=== PATIENT | female | born 1995 | race Caucasian/White ===

== ENCOUNTER 2018-08-08 10:01 | Outpatient (CLI) | payer OTHER ==
[~2018-08-08] VITALS: Ht 165.1 cm; Wt 97.6 kg
[2018-08-08 10:29] VITALS: BP 127/83
[2018-08-08] MEDS ORDERED: PRENTAB9 PO (10:34)
[2018-08-08 10:58] VITALS: BP 116/69
== END 2018-08-08 11:19 | disposition home or self-care (01) ==
LOC: M LDO 10:01
PROVIDERS: ATTEND Obstetrics & Gynecology
DX: Z34.83 Encounter for supervision of other normal pregnancy, third trimester (principal); Z36.89 Encounter for other specified antenatal screening; Z3A.37 37 weeks gestation of pregnancy
CPT/HCPCS: 59025; 76815; G0378; G0463

== ENCOUNTER 2018-08-12 11:14 | Outpatient (CLI) | payer OTHER ==
[~2018-08-12] VITALS: Ht 165.1 cm; Wt 97.5 kg
[~2018-08-12 11:14] MED LIST: PRENTAB9 PO
[2018-08-12 11:37] VITALS: BP 111/66
--- NOTE | 2018-08-12 13:14 | IPNPDOC ---
Text Note Date of Service The patient was seen on 08/12/18. NOTE [id number] @ 1307 23 yo @ 37+5 presented to L&D from clinic d/t BL FHR of 170. Monitored in clinic twice a week for presumed Class B DM. Denies DFM, LOF, CTXs, and vaginal bleeding. S: Pt is resting in bed in semi-fowlers denies pain or discomfort with spouse at bedside. O: VS- WNL, afebrile FHR- 140, moderate variability, + accels, no decels CTX- 1 noted during monitoring BPP- 8/10; no breathing movements noted A: 23 yo @ 37+5 with reactive NST, no CTXs, BPP-8/10 P: Discharge to home with strict return precautions. Consulted with Dr. Montoya, agrees with above plan of care. Pt has Monitoring scheduled for Saturday08/15/2018. Spent 10 min counseling on importance of returning if DFM noted or any change in status. Both parents verbalized understanding. VS,Fishbone, I+O VS, Fishbone, I+O Vital Signs Date Time Temp Pulse Resp B/P (MAP) Pulse Ox O2 Delivery O2 Flow Rate FiO2 08/12/18 11:37 98.6 86 16 111/66 (81) TAMANNA FELDMAN Aug 12, 2018 13:14
== END 2018-08-12 13:24 | disposition home or self-care (01) ==
LOC: M LDO 11:14
PROVIDERS: ATTEND Midwife
DX: O36.8330 Maternal care for abnormalities of the fetal heart rate or rhythm, third trimester, not applicable or unspecified (principal); Z3A.37 37 weeks gestation of pregnancy
CPT/HCPCS: 59025; 76815; G0378; G0463

== ENCOUNTER 2018-08-16 10:35 | Outpatient (CLI) | payer OTHER ==
[~2018-08-16] VITALS: Ht 162.6 cm; Wt 99.4 kg
[2018-08-16 10:57] VITALS: BP 113/70
[2018-08-16 12:42] VITALS: BP 114/64
[2018-08-16 12:50] VITALS: BP 111/61
== END 2018-08-16 13:10 | disposition home or self-care (01) ==
LOC: M LDO 10:35
PROVIDERS: ATTEND Specialist
DX: O26.893 Other specified pregnancy related conditions, third trimester (principal); O47.1 False labor at or after 37 completed weeks of gestation; Z3A.38 38 weeks gestation of pregnancy
CPT/HCPCS: 59025; G0378; G0463

== ENCOUNTER 2018-08-26 07:23 | Inpatient (IN) | payer OTHER ==
[~2018-08-26] VITALS: Ht 162.6 cm; Wt 99.6 kg
[2018-08-26] VITALS (46 sets, daily range): BP systolic 84–127; BP diastolic 45–82
[2018-08-26] MEDS ORDERED: PENICILLIN G POTASSIUM IV 5 MU in D5W MINI-BAG PLUS 100 ML IV STA ×2 (08:40→15:46)
[2018-08-26] MEDS ORDERED: LACTATED RINGER'S 1000 ML IV ONE (08:45)
[2018-08-26] MEDS ORDERED: OXYTOCIN DRIP 30 UNITS in APPROPRIATE DILUENT 1 EA IV SCH (08:45)
[2018-08-26] MEDS: LR 1,000 ML IV SCH ×3 (09:26→22:55)
[2018-08-26 09:35] LABS: HEMATOCRIT 36.1 % (36.0-47.0); MEAN CORPUSCULAR HEMOGLOBIN 28.2 pg (27.0-33.0); MEAN CORPUSCULAR HGB CONC 33.2 g/dl (32.0-36.5); MEAN CORPUSCULAR VOLUME 84.9 fl (80.0-96.0); PLATELET COUNT, AUTOMATED 284 10^3/uL (150-450); RED BLOOD COUNT 4.25 10^6/uL (4.00-5.40)
--- NOTE | 2018-08-26 11:03 | HPE ---
DATE OF ADMISSION: 08/26/2018 23-year-old 2, para 0, last menstrual period (LMP) 11/21/2017, estimated date of confinement (EDC) 08/28/2018 at 39 and 5 weeks of gestation for induction of labor being a gestational diabetes mellitus (GDM) 1, body mass index (BMI) of 34.6. Group B Streptococcus (GBS) positive, Rh negative. PAST HISTORY: 03/2018, spontaneous . LABS: A negative, HIV negative, hepatitis negative, RPR negative, rubella immune. Varicella immune. Pap normal. Urine GBS positive. Initial 1-hour glucose was 151. She did her 3-hour GTT, fasting 89, 1 hour 82, 2 hour 176, and 3 hours 149. She has been monitoring her blood glucose, and apparently they are within normal limits. She had an TITA done on 08/12/2018 which is at the margin of normal at 5.2. Apparently, she had one done 72 hours before induction of labor, it was 12.0. Her blood pressure is 117/68, respirations are 18, pulse 104, temperature is 97.7. Urine is 1.015, pH 6. and +1 for leukocytes. The rest of the examination is unremarkable. She is normocephalic, atraumatic. Neck: Full range of motion. Pupils equal and reactive to light. She category 1 strip. No decelerations, moderate variability, baseline is normal. Distal pulses are symmetric. No evidence of deep venous thrombosis (DVT), pulmonary embolus (PE), or superficial phlebitis. Chest is clear bilaterally to bases. No wheezes or rhonchi. No costovertebral angle (CVA) tenderness. Abdomen: Soft. Four quadrant bowel sounds, appropriate symphysis fundus height. She has no rashes, lesions, or pruritus. No arthralgia, myalgia. No complaint joint pain. No complaint of cough, wheeze, shortness of breath, or dyspnea on exertion. No infection. Neuro complete. She has no incontinency, urgency, or frequency. No nausea, vomiting, diarrhea, or constipation. She has no diabetic issues. 3-hour GTT apparently was normal. Her past gyne history is unremarkable. Medical and surgical noncontributory. Family history is noncontributory. She does not smoke, drink, abuse drugs. No domestic violence. to a soldier, and good support systems. Our plan of management is to hydrate, Pitocin augmentation or induction of labor, possibly followed up by Navarrete bulb after appropriate antibiotic therapy for group B Streptococcus (GBS). We discussed the consent for vaginal delivery which is through the vagina with possible assistance of forceps or vacuum devices if needed for maternal or indications, forceps, a vacuum, or devices that can assist with vaginal delivery when normal pushing efforts cannot achieve delivery on their own or when delivery is needed in an emergency for baby's well-being. Medications may be required to induce or augment labor in order to achieve a vaginal delivery, and episiotomy may be required to help baby deliver vaginally. You may also require repair of any lacerations or tears of the vagina or vulva that are caused by delivery. In some cases emergencies, can arise that require emergency section delivery so quickly that there may not be enough time to stop and complete consent forms, but the surgery will be discussed with the patient by the physician, section delivery of baby through incision on the abdomen. In some situations, may be safer to mother and baby than continuing labor and only performed when clinically indicated. The risks of vaginal delivery include, but are not limited to, bleeding, infection, injury to the vagina, pelvic structures, injury to baby, damage to the uterus, reaction to anesthesia, uterine rupture, risk of hysterectomy for life-threatening bleeding situations which is usually remote, or even . Medications used to induce or augment labor may increase the risk for infection, uterine tachysystole, uterine rupture, heart rate abnormalities, and the need for section or possible hysterectomy, hemorrhage, and additional risks for use of forceps and vacuum include scratches, hematomas of the head, or intracranial bleed. The patient expressed and verbalized understanding of the risks and benefits. agreed. 40-minute discussion. GEM
[2018-08-26] MEDS ORDERED: PENICILLIN G POTASSIUM IV 2.5 MU in APPROPRIATE DILUENT 1 EA IV SCH (12:45)
[2018-08-26] MEDS: PENICILLIN G POTASSIUM IV 2.5 MU in APPROPRIATE DILUENT 1 EA IV SCH (20:04)
--- NOTE | 2018-08-26 20:04 | NUR ---
2000 hours review patient progress antibiotic coverage complete contractionsq6 min moderate intensify pain level 5/10 category 1 strip Pitocin at 16 mu per minute, cervix anterior 70% effaced -3 station stretchy 2-3 cm now srom clear liquor. Safe to proceed
[2018-08-26] MEDS ORDERED: **PENDING PCN ENTRY XX SCH (21:00)
[2018-08-26] MEDS ORDERED: FENTANYL 2MCG/ML ROPIVACAINE 0.2% IN 0.9% NACL 100ML IVBAG As Ordered ONE (21:01)
[2018-08-26] MEDS: FENTANYL/ROPIVACAINE/NACL BAG 100 ML EPIDURAL SCH (22:47)
[2018-08-26] MEDS ORDERED: ONDANSETRON 4MG/2ML VIAL (J2405) IV PRN (23:15)
[2018-08-26] MEDS ORDERED: EPIDURAL/PCA KEYS XX PRN (23:15)
[2018-08-26] MEDS ORDERED: diphenhydrAMINE INJ 50MG/ML VIAL (J1200) IV PRN (23:15)
[2018-08-26] MEDS ORDERED: EPIDURAL COMMENT XX SCH (23:15)
[2018-08-26] MEDS ORDERED: REFRIGERATOR IV KEYS XX PRN (23:15)
[2018-08-26] MEDS ORDERED: NALOXONE INJ 0.4 MG/1 ML VIAL (J2310) IV PRN (23:15)
[2018-08-26] MEDS: ePHEDrine SULFATE 25 MG/5 ML(5MG/ML) SYRINGE IV PRN ×2 (23:24→23:30)
[2018-08-27] VITALS (54 sets, daily range): BP systolic 85–115; BP diastolic 44–62
[2018-08-27] MEDS: ePHEDrine SULFATE 25 MG/5 ML(5MG/ML) SYRINGE IV PRN (00:13)
[2018-08-27] MEDS: PENICILLIN G POTASSIUM IV 2.5 MU in APPROPRIATE DILUENT 1 EA IV SCH ×3 (00:17→08:09)
[2018-08-27] MEDS: LR 1,000 ML IV SCH (02:52)
--- NOTE | 2018-08-27 06:22 | NUR ---
0440 am late deceleration x3 good variability moderate and rapid recovery. 8-9 cm pop Plan stop Pitocin allow to labor down safe to proceed
--- NOTE | 2018-08-27 06:30 | NUR ---
0600 adequate contractions no decelerations anterior lip pop -3 station no moulding still low bp since epidural Epidural reduced ephedrine given allow to continue witout pitocin
[2018-08-27] MEDS: FENTANYL/ROPIVACAINE/NACL BAG 100 ML EPIDURAL SCH (08:55)
--- NOTE | 2018-08-27 09:12 | NUR ---
L&D Intrapartum Progress Note S: CNM at for reassessment as patient is reporting increased vaginal/rectal pressure. She denies pain. Family present at bs for support. O: VSS/AF GEN: A&Ox3,NAD ABD: Gravid; NNTP; relaxed uterine resting tone FHR: 150 BL, moderate variability; + accelerations; no decelerations TOCO: irregular u/a ctx q2-6min; min/mod intensity via palp SCE: right anterior lip/100/+1, cephalic vtx A/P: 23y/o at 39+6 weeks; admission for IOL d/t GDM A1 and BMI 34. GBS+ adequately treated. CAT I FHR. Protracted active phase of labor. OP presentation and irregular U/A. Will augment with oxytocin at this time and continue with maternal repositioning to facilitate internal rotation. Reviewed risks/benefits. Pt agrees with plan. Safe to proceed.
--- NOTE | 2018-08-27 12:40 | NUR ---
L&D Intrapartum Progress Note S: CNM at for reassessment. SVE by RN at 1120: C/C/+2; and has been pushing since that time. Pt reports strong urge to push with ctx. Denies questions/concerns. Family remains present at bedside for support. O: VSS/AF GEN: A&Ox3,NAD ABD: Gravid; NNTP; relaxed uterine resting tone FHR: 155 BL, moderate variability; + accelerations; early decelerations TOCO: q3 min; moderate variabilty on oxytocin at 10mu/min SCE: c/c/+3 some caput noted A/P: 23y/o at 39+6 weeks; admission for IOL d/t GDM A1 and BMI 34. GBS+ adequately treated. CAT I FHR. Second stage labor. Pushing well. CAT I FHR. I anticipate this afternoon.
[2018-08-27] MEDS ORDERED: OXYTOCIN 30 UNITS IN 0.9% NaCl 500ML IV BAG (J2590) As Ordered ONE (13:45)
[2018-08-27] MEDS ORDERED: OXYTOCIN DRIP 30 UNITS in APPROPRIATE DILUENT 1 EA IV SCH (13:48)
[2018-08-27] MEDS ORDERED: MOM 30ML SUSPENSION UDC PO PRN (14:00)
[2018-08-27] MEDS ORDERED: DOCUSATE SODIUM 100 MG CAP PO PRN (14:00)
[2018-08-27] MEDS ORDERED: MEASLES,MUMPS,RUBELLA VACCINE INJ (MMR-II) (90707) SC SCH (14:00)
[2018-08-27] MEDS ORDERED: RHOGAM 300 MCG (1500 IU) INJ (J2790) IM SCH (14:00)
[2018-08-27] MEDS ORDERED: DIBUCAINE 1% OINTMENT 30GM TOP PRN (14:00)
[2018-08-27] MEDS ORDERED: ACETAMINOPHEN 500 MG TAB PO PRN (14:00)
[2018-08-27] MEDS ORDERED: ANUSOL HC CREAM 30GM TOP PRN (14:00)
[2018-08-27] MEDS ORDERED: METHYLERGONOVINE MALEATE 0.2 MG TAB PO PRN (14:00)
--- NOTE | 2018-08-27 14:00 | NUR ---
[facility] L&D Delivery Summary: CNM called to bs for management of second stage labor. Pushing with excellent maternal effort in various positions. Thick mec noted during pushing and NICU staff was notified and at the bedside during delivery. After approximately 2 hours of pushing vertex delivered direct OA and restituted to TASHIA. Left anterior shoulder delivered followed by posterior shoulder and corpus. Spontaneous cry following delivery. 3VC double clamped and cut by MIRI and nbn handed off to Dr. Batres for initial assessments d/t thick mec. Cord blood collected for MBT A NEG . With gentle traction on cord; placenta delivered Mj and found to be complete and intact w/ central cord insertion. FF@U-2 with small rubra lochia noted following placental delivery with oxytocin bolus infusing for active management of the third stage. Vagina, perineum and cervix inspected for lacerations. Bilateral labial lacs present. Right laceration repaired with 4-0 vicryl on an SH. Left labial laceration hemostatic and not repaired. Mom and babe bonding and in stable condition when I left the room. Delivery Time: 1317, male infant Placenta Time: 1334 Anesthesia: Epidural : 8/9 Weight: 3590g EBL: 250ml Attendant: Jamar Loera CNM
[2018-08-27] MEDS: IBUPROFEN 800 MG TAB PO PRN (23:07)
[2018-08-28 06:00] VITALS: BP 97/52
--- NOTE | 2018-08-28 07:27 | IPNPDOC ---
Text Note Date of Service The patient was seen on 08/28/18. NOTE PPD1 States feeling well, pain controlled with prescribed meds. Baby bonding and feeding well, formula only. No heavy VB. Lochia slowing. Ambulatory. Tolerating PO without issues. Voiding spont. No CP/LP/SOB. VSSAF NAD A&O LE no C/C/E Ut at U-2, firm a/p: Doing well. Cont routine care. D/C likely tomorrow. immigration consultant today to assist. Sessions A-FIB/GAGE A-FIB History Current/History of A-Fib/PAF?: No Current Oral Anticoagulant The: No VS,Fishbone, I+O VS, Fishbone, I+O Vital Signs Date Time Temp Pulse Resp B/P (MAP) Pulse Ox O2 Delivery O2 Flow Rate FiO2 08/28/18 06:00 97.7 83 18 97/52 (67) 08/27/18 18:00 97 I&O- Last 24 Hours up to 6 AM 08/28/18 06:00 Intake Total 5559.4 ml Output Total 1800 ml Balance 3759.4 ml SESSIONS,RUPALI Naidu MD Aug 28, 2018 07:27
[2018-08-28] MEDS: PRENATAL VITAMINS CHEWABLE TABLET PO SCH (08:49)
[2018-08-28 14:00] VITALS: BP 96/61
[2018-08-29 06:00] VITALS: BP 109/55
[2018-08-29] MEDS: PRENATAL VITAMINS CHEWABLE TABLET PO SCH (08:07)
[2018-08-29] MEDS: IBUPROFEN 800 MG TAB PO PRN (08:36)
[2018-08-29] MEDS ORDERED: ACET-861 PO (09:17)
[2018-08-29] MEDS ORDERED: COLA100C5 PO (09:17)
[2018-08-29] MEDS ORDERED: IBUP200C33 PO (09:17)
[2018-08-29 10:45] VITALS: BP 138/68
[2018-08-29 11:15] VITALS: BP 133/90
--- NOTE | 2018-08-29 18:22 | IPNPDOC ---
Progress Note Date of Service: Aug 29, 2018 Day#: 2 Progress Note late entry, patient seen earlier this morning prior to discharge SUBJECT: Pt is a 23yo [id number] s/p uncomplicated at 39+wk after undergoing IOL for A1GDM, doing well day # 2. She has been ambulating, voiding spontaneously without issue and tolerating regular diet. Breast feeding without issue. Reports lochia is like a normal period. Denies f/c/n/v/CP/SOB. OBJECTIVE: VITAL SIGNS: Within normal limits, afebrile. Alert and oriented times three. Abdomen: Fundus firm at U-2. Soft, NTTP Extremities: no pain with palpation of calves ASSESSMENT: Pt is a 23yo [id number] s/p uncomplicated at 39+wk after undergoing IOL for A1GDM, doing well day # 2. Vitals within normal limits, afebrile, hemodynamically stable with no evidence of infection. PLAN: 1. Discharge to home today. 2. Tylenol and Motrin for pain. 3. Encourage breast feeding and ambulation. 4. Minipillfor contraception 5. Routine PP visit in 6 weeks in clinic. 6. Discussed return precautions at length. Dr. Francesca Ware MD VS, I&O, 24H, Fishbone Vital Signs/I&O Vital Signs Date Time Temp Pulse Resp B/P (MAP) Pulse Ox O2 Delivery O2 Flow Rate FiO2 08/29/18 11:15 98.1 72 18 133/90 (104) 97 Francesca Ware MD Aug 29, 2018 18:22
--- NOTE | 2018-08-30 06:41 | IPN ---
DATE OF SERVICE: 08/28/2018 This patient has requested circumcision of their male . After discussing risks and benefits of circumcision, medical and nonmedical indication, penile block and aftercare, signed the consent form. All questions were answered. 20-minute discussion. We await the clearance by the automobile brakes bonder.
== END 2018-08-29 11:59 | disposition home or self-care (01) | DRG 807 ==
LOC: M LDI 07:23 → M OBS 08-27 16:18
PROVIDERS: ADMIT Obstetrics & Gynecology; ATTEND Advanced Practice Midwife
PROC: 3E033VJ Introduction of Other Hormone into Peripheral Vein, Percutaneous Approach (ICD-10-PCS; 2018-08-26)
PROC: 10E0XZZ Delivery of Products of Conception, External Approach (ICD-10-PCS; principal; 2018-08-27)
PROC: 0HQ9XZZ Repair Perineum Skin, External Approach (ICD-10-PCS; 2018-08-27)
DX: O24.420 Gestational diabetes mellitus in childbirth, diet controlled (principal); Z37.0 Single live birth; Z3A.39 39 weeks gestation of pregnancy; O99.824 Streptococcus B carrier state complicating childbirth; O70.0 First degree perineal laceration during delivery

== ENCOUNTER 2020-02-09 14:10 | Outpatient (CLI) | payer OTHER ==
[~2020-02-09] VITALS: Ht 160 cm; Wt 102.3 kg
[~2020-02-09 14:10] MED LIST changes: +ACET-861 PO; +COLA100C5 PO; +IBUP200C33 PO
[2020-02-09 14:27] VITALS: BP 115/61
[2020-02-09] MEDS ORDERED: METF500T13 PO (14:33)
--- NOTE | 2020-02-09 15:47 | REPVR ---
PROCEDURE INFORMATION: Exam: US Biophysical Profile Without Non-Stress Test Exam date and time: 02/09/2020 3:03 PM Age: 25 years old Clinical indication: status abnormalities: ; Other: Nonreactive nst; Single gestation; Third trimester (28 wks 0 days until delivery); ; Additional info: Nonreactive nst in clinic with variable decelerations TECHNIQUE: Imaging protocol: US biophysical profile without non-stress testing. COMPARISON: No relevant prior studies available. FINDINGS: Single, living intrauterine fetus in cephalic presentation with the given gestational age by the LMP from 06/13/2019 measuring 34 weeks and 3 days and AAMIR of 03/19/2020. Placenta is posterior and fundal, grade II. No abruptio or previa. The heart rate is 143 beats/min. Left hydronephrosis is seen in the fetus. The right kidney appears within normal limits. BIOPHYSICAL PROFILE: Breathin/2 Gross body movements: 2/2 tone: 2/2 Qualitative amniotic fluid: 2/2. The TITA measures 12.1 cm. Biophysical Profile Score: 8/8 The umbilical artery PSV measures 32.7 cm/sec. The EDV measures 11.2 cm/sec. The umbilical artery S/D ratio measures 2.92 which is within normal limits. The umbilical artery RI measured 0.66 which is within normal limits. IMPRESSION: 1. Single, intrauterine fetus in cephalic presentation, with a heart rate of 143 beats per minute. Left hydronephrosis is seen in the fetus. The right kidney appears within normal limits. 2. Normal biophysical profile, measuring 8/8. 3. Normal doppler velocimetry of the umbilical artery. Electronically signed by: Hernandez Pelaez On 02/09/2020 15:47:12 PM
[2020-02-09 16:12] VITALS: BP 116/74
--- NOTE | 2020-02-09 16:26 | IPNPDOC ---
Text Note Date of Service The patient was seen on 02/09/20. NOTE LND Triage Note S: Beverley is a 25yo at 34+3wks, EDC [id number], who was sent to LND for prolonged monitoring and BPP d/t variables noted during APFT in clinic today. Pt currently reports +FM, denies LOF/VB/CTX. complicated by the following: Class B DM, currently on metformin Obesity Rh Negative (Rhogam [id number]) O: VSS, afebrile, normotensive FHR 140s-150s, moderate variability, + accels, 1x variable deceleration noted after an accel CTX: none US: BPP 8/8; Left hydronephrosis noted on today's US A: 25yo at 34+3wks, reactive NST, BPP 8/8, overall reassuring status Pt to be discharged home with return precautions Will order f/u BPP with her next growth US and to review hydronephrosis (not seen on prior US) VS,Antoniobone, I+O VS, Antoniobone, I+O Vital Signs Date Time Temp Pulse Resp B/P (MAP) Pulse Ox O2 Delivery O2 Flow Rate FiO2 02/09/20 14:27 96.9 105 18 115/61 (79) DESIREE ALLEN CNM Feb 09, 2020 16:26
== END 2020-02-09 16:19 | disposition home or self-care (01) ==
LOC: M LDO 14:10
PROVIDERS: ATTEND Registered Nurse Maternal Newborn
DX: O26.893 Other specified pregnancy related conditions, third trimester (principal); Z3A.34 34 weeks gestation of pregnancy
CPT/HCPCS: 59025; 76815; 76819; 76820; G0378; G0463

== ENCOUNTER 2020-03-15 09:50 | Inpatient (IN) | payer OTHER ==
[2020-03-15] VITALS (10 sets, daily range): BP systolic 81–126; BP diastolic 49–69
[~2020-03-15] VITALS: Ht 160 cm; Wt 103.0 kg
[~2020-03-15 09:50] MED LIST changes: +METF500T13 PO
[2020-03-15] MEDS ORDERED: LR 1,000 ML IV SCH (12:14)
[2020-03-15] MEDS ORDERED: OXYTOCIN DRIP 30 UNITS in IV 1 EA IV SCH (12:15)
[2020-03-15 13:13] LABS: HEMOGLOBIN 11.6 g/dl (12.0-15.5); MEAN CORPUSCULAR HEMOGLOBIN 26.5 pg (27.0-33.0); MEAN CORPUSCULAR HGB CONC 32.2 g/dl (32.0-36.5); MEAN CORPUSCULAR VOLUME 82.2 fl (80.0-96.0); PLATELET COUNT, AUTOMATED 284 10^3/uL (150-450); RED BLOOD COUNT 4.38 10^6/uL (4.00-5.40); WHITE BLOOD COUNT 11.1 10^3/uL (4.0-10.0)
[2020-03-15 13:28] LABS: BEDSIDE GLUCOSE CONFIRMATION 92 MG/DL (LESS THAN 200)
[2020-03-15] MEDS: LR 1,000 ML IV SCH ×3 (13:29→17:42)
--- NOTE | 2020-03-15 14:28 | HPEPDOC ---
Obstetrical History & Physical General Date of Admission Mar 15, 2020 at 09:50 History of Present Illness 25yo ada [id number] @39+3, A-, GBS-, complicated by Pre gestational diabetes diagnosed by early one hour gtt, maternal obesity, hydronephrosis, admitted for IOL Chief Complaint: Other (IOL) Information Provided By: Patient Age: 25 : 3 Term: 1 Pre-term: 0 Abortions: 1 Livin Care Care: Good Care Dating Final EDC: Mar 19, 2020 Final EDC for Daily Update: Mar 19, 2020 Final EDC by: LMP LMP: Jun 13, 2019 EGA at Admission: 39 (+3) Antepartum Course Diagnos(e)s Pre gestational diabetes, maternal obesity, hydronephrosis Height (inches): 64 Pre- weight (lbs.): 200 Admission Weight (lbs.): 227 Change in Weight (lbs.): 27 Past Medical History Past Obstetrical History : Past Obstetrical History: Multigravida Date of Delivery: Mar 15, 2020 (08/2018) Type of Delivery: Spontaneous Vaginal Del. Sex of : Male Weight of Infant (grams): 3600 Complications: Yes (gestational diabetes) LIBRARY MEDIA SPECIALIST History: Spontaneous (6wk with D&C) Past Medical History Medical History diabetes, obesity Surgical History: Dilatation and Curettage Family History Significant Family History: Diabetes (mother and father) Social History Marital Status: Psychosocial History: No pertinent psych hx * Smoker: non-smoker Alcohol: Denies Drugs: denies Abuse Violence Screening Have you been hit/kicked/slapp: No Have you been sexually assault: No Imunizations Tdap status: current Allergies Coded Allergies: No Known Allergies (Verified Allergy, Unknown, 08/08/18) Medications Scheduled Metformin HCl (Metformin HCl) 500 Mg Tablet, 500 MG PO DAILY No.137/Iron/Folic Acd ( Vitamin Tablet) 1 Tab Tab, 1 TAB PO DAILY Physical Examination Physical Examination GENERAL: Alert and oriented times three. BREAST: . ABDOMEN: Gravid and non-tender to touch. FETUS: Is vertex (VTX) by sterile vaginal examination (SVE), fetus is vertex (VTX) by Prashanth confirmed on TAUS. HEART RATE: Regular rate and rhythm. LUNGS: Clear to auscultation (CTA). EXTREMITIES: mild edema of hands and feet. Vital Signs/I&O Vital Signs Date Time Temp Pulse Resp B/P (MAP) Pulse Ox O2 Delivery O2 Flow Rate FiO2 03/15/20 13:25 97.9 99 115/69 (84) 18 Laboratory Data 24H LABS Laboratory Tests 2 03/15/20 10:03: Serology Scanned Report Hepatitis B Testing 03/15/20 12:25: Nucleated Red Blood Cells % (auto) 0.0, Bedside Glucose Confirm (Misc) 92 CBC/BMP Laboratory Tests 03/15/20 12:25 Urine Culture: Contaminated Pertinent Laboratoy Data Blood Type: A- RBC Antibody Screen: Negative HIV: Negative Hepatitis B: Negative Rapid Plasma Reagin: Nonreactive Rubella: Immune Varicella: Immune Chlamydia/Gonorrhea: Negative Group B Streptococcus: Negative Cystic Fibrosis: Negative Anatomy Ultrasound Placenta Location: Posterior Normal Anatomy: Yes Placenta Previa: No Estimated Weight (grams): 3003 (at 36+5) Vaginal Examination Dilation: 2cm Effacement: 50% Station: -3 Cervical Consistency: Medium Cervical Position: Posterior Presentation: Cephalic presentation Position: Vertex (occiput) Assessment Heart Rate (FHR): 130 Variability: Moderate Accelerations: Positive Decelerations: None Tocometer Contractions: No Multi-drug resistant Organism: No history of MDRO Assessment/Plan Assessment Beverley is a 25-year-old (G)3 para (P)1-0-1-1 at 39+3 weeks by 10+3-week ultrasound. Presents to Labor and Delivery (L&D) for scheduled IOL. Denies bleeding, lof, cramping, or other complaints, states frequent movement. Plan Admit and orient. Florist Supplies Salesperson and consent for induction and labor. Diet: clear liquid Group B Streptococcus (GBS) [negative]. Labs and intravenous (IV) per unit protocol. Counseled on Pitocin and induction of labor (IOL). Lactated Ringers (LR): Bolus 1000 mL, then at 125 mL/hr. Anticipate [normal spontaneous delivery ()]. Initiate pitocin augmentation and titrate per protocol, continuous efm x2. Monitor for change in or maternal status. Evaluate for change as indicated. C-S as appropriate. Labor and Delivery Counseling Reviewed conset for blood products, induction and labor with expressed understanding and confirmed consent. JAYANT MAYS Mar 15, 2020 14:28
[2020-03-15] MEDS ORDERED: PENICILLIN G POTASSIUM IV 2.5 MU in IV 1 EA IV SCH (16:15)
[2020-03-15] MEDS ORDERED: FENTANYL 2MCG/ML ROPIVACAINE 0.2% IN 0.9% NACL 100ML IVBAG As Ordered ONE (21:27)
--- NOTE | 2020-03-15 22:00 | IPNPDOC ---
Obstetrical Progress Note Date of Service Mar 15, 2020 Subjective Pt c/o increased pain, requesting epidural Objective Vital Signs Date Time Temp Pulse Resp B/P (MAP) Pulse Ox O2 Delivery O2 Flow Rate FiO2 03/15/20 17:47 90 109/53 (71) 03/15/20 17:08 97.9 18 03/15/20 13:25 18 Assessment Heart Rate (FHR): 130 Variability: Moderate Accelerations: Positive Decelerations: None Heart Rate Tracing: Category I Tocometer Contractions: Yes (on 14mu pitocin) Frequency: regular, every 2-2 min. Duration: greater than 60 seconds Strength: palpated as moderate Sterile Vaginal Examination Dilation: 4 cm Effacement (%): 50% Station: -3 Cervical Consistency: Medium Cervical Position: Posterior Postion/Presentation: Cephalic presentation Assessment and Plan Age: 25 : 3 Term: 1 Pre-term: 0 Abortions: 1 Livin EGA at Admission: 39 (+3) Status: Reassuring Group B Streptococcus: Negative Anticipate: Vaginal Delivery Additional Comments 1000ml LR bolus then return to 125ml/hr, continuous efm x2, continue pitocin augmentation and titrate per protocol, monitor for change in or maternal status, may have epidural as desired, consider AROM as appropriate, anticipate vaginal delivery JAYANT MAYS CNM Mar 15, 2020 22:00
[2020-03-15] MEDS ORDERED: LACTATED RINGER'S 1000 ML IV PRN (22:56)
[2020-03-15] MEDS ORDERED: REFRIGERATOR IV KEYS XX PRN (22:56)
[2020-03-15] MEDS ORDERED: FENTANYL/ROPIVACAINE/NACL BAG 100 ML EPIDURAL SCH (22:56)
[2020-03-15] MEDS ORDERED: NALOXONE INJ 0.4MG/1ML VIAL (J2310 PER 1MG) IV PRN (22:56)
[2020-03-15] MEDS ORDERED: EPIDURAL/PCA KEYS XX PRN (22:56)
[2020-03-15] MEDS ORDERED: EPIDURAL COMMENT XX SCH (22:56)
[2020-03-15] MEDS ORDERED: diphenhydrAMINE 50MG/ML VIAL (J1200) IV PRN (22:56)
[2020-03-15] MEDS ORDERED: ePHEDrine SULFATE 25 MG/5 ML(5MG/ML) SYRINGE IV PRN (22:56)
[2020-03-15] MEDS ORDERED: ONDANSETRON 4MG/2ML VIAL IV PRN (22:56)
[2020-03-16] VITALS (21 sets, daily range): BP systolic 70–120; BP diastolic 32–72
[2020-03-16] MEDS: LR 1,000 ML IV SCH (02:52)
--- NOTE | 2020-03-16 06:12 | DNPDOC ---
[facility] Delivery Note Delivery Note DATE OF DELIVERY: 03/16/2020 PREDELIVERY DIAGNOSIS: 39+4/7 weeks' gestation and labor. POST DELIVERY DIAGNOSIS: Delivered. PROCEDURE: Spontaneous vaginal delivery. FORM SETTER HELPER: Dr. Rahel Moeller ANESTHESIA: Epidural. ESTIMATED BLOOD LOSS: 100 mL. FINDINGS: 8 pound 6 ounce 3800g male , Score 8/8, nuchal cord times x1. DELIVERY SUMMARY: Ms. Lowery was found to be C/C/0 with BBOW. Upon exam, spontaneous rupture of membranes with clear fluid noted. With excellent maternal pushing effort over 3 sets of contractions, spontaneous vaginal delivery of a viable male infant. Presentation was OA with restitution to ROT with left shoulder anterior position. Anterior shoulder and body delivered without difficulty. Tight nuchal x2 delivered through as unable to be reduced on perineum. with spontaneous cry on delivery field then placed on maternal abdomen. Pitocin IV bolus initiated. After 6 minutes of delayed cord clamping, three vessel cord clamped x2 and cut by FOB. Cord blood sample obtained. Third stage spontaneous with intact placenta. Fundal massage revealed firm uterine tone and hemostasis. Inspection revealed hemostatic abrasions to the bilateral labia and the perineum, no repair was indicated. EBL 100ml. Mother and infant stable and bonding upon my leaving the room. RAHEL MOELLER DO Mar 16, 2020 06:12
[2020-03-17 06:05] VITALS: BP 92/52
--- NOTE | 2020-03-17 06:14 | IPNPDOC ---
Progress Note Date of Service: Mar 17, 2020 Progress Note SUBJECT: Beverley is a 25 -year-old 3now Para3 003 status post uncomplicated spontaneous vaginal delivery at 39+4/7 weeks' at approximately of a male 8 pounds 6 ounces 800 grams) with post vaginal laceration , doing well day # 1. She has been ambulating, voiding spontaneously without issue and tolerating regular diet. Breast feeding without issue. Reports lochia is minimal . OBJECTIVE: VITAL SIGNS: Within normal limits, afebrile. Alert and oriented times three. normal work of breathing Heart rate: Regular rate and rhythm Abdomen: Fundus firm at U-2. Soft, NTTP. ASSESSMENT: Beverley is a 25 -year-old 3now Para3 003 status post uncomplicated spontaneous vaginal delivery at 39+4/7 weeks' at approximately of a male 8 pounds 6 ounces 800 grams) with post vaginal laceration , doing well day # 1. Vitals within normal limits, afebrile, hemodynamically stable with no evidence of infection. PLAN: 1. Discharge to home today. 2. Tylenol and Motrin for pain. 3. Encourage breast feeding and ambulation. 4. Paragard for contraception for now, desires BTL. 5. Routine PP visit in 6 weeks in clinic. 6. Discussed return precautions at length. VS, I&O, 24H, Fishbone Vital Signs/I&O Vital Signs Date Time Temp Pulse Resp B/P (MAP) Pulse Ox O2 Delivery O2 Flow Rate FiO2 03/16/20 18:00 99.0 80 17 113/65 (81) 100 Room Air I&O- Last 24 Hours up to 6 AM 03/17/20 06:00 Output Total 1000 ml Balance -1000 ml ROBERTO CARLOS MOE MD Mar 17, 2020 04:52
[2020-03-17] MEDS ORDERED: DOCU100C16 PO (06:25)
[2020-03-17] MEDS ORDERED: IBUP80TA PO (06:25)
[2020-03-17] MEDS ORDERED: ACET-683 PO (06:25)
[2020-03-17 07:30] VITALS: BP 92/52
[2020-03-17] MEDS ORDERED: INFLUENZA QUADRIVALENT PF VACCINE 0.5ML SYRINGE IM ONE (09:00)
[2020-03-17 18:00] VITALS: BP 131/79
--- NOTE | 2020-03-18 15:13 | IPN ---
DATE: 03/17/2020 This patient requested circumcision of her male after discussing risks, benefits of circumcision, the medical and the nonmedical indications, the penile block and aftercare. Expressed understanding of penile block, aftercare, and bleeding. All questions were answered. Twenty minute discussion. The patient signed the consent form. We await the clearance by the customs examiner. GEM
== END 2020-03-17 18:45 | disposition home or self-care (01) | DRG 807 ==
LOC: M LDI 09:50 → M OBS 03-16 09:45
PROVIDERS: ADMIT Registered Nurse
PROC: 3E033VJ Introduction of Other Hormone into Peripheral Vein, Percutaneous Approach (ICD-10-PCS; 2020-03-15)
PROC: 10E0XZZ Delivery of Products of Conception, External Approach (ICD-10-PCS; principal; 2020-03-16)
DX: O24.425 Gestational diabetes mellitus in childbirth, controlled by oral hypoglycemic drugs (principal); Z37.0 Single live birth; Z3A.39 39 weeks gestation of pregnancy; O99.214 Obesity complicating childbirth; E66.9 Obesity, unspecified; O69.1XX0 Labor and delivery complicated by cord around neck, with compression, not applicable or unspecified

== ENCOUNTER 2020-08-01 09:21 | Emergency (ER) | payer OTHER ==
[~2020-08-01] VITALS: Ht 160 cm; Wt 102.6 kg
[~2020-08-01 09:21] MED LIST changes: +ACET-683 PO; +DOCU100C16 PO; +IBUP80TA PO
[2020-08-01 10:45] LABS: BASO # 0.1 10^3/uL (0.0-0.2); BASO % 0.4 % (0.0-1.0); EOS # 0.2 10^3/uL (0.0-0.5); EOS % 1.7 % (0.0-3.0); HEMATOCRIT 42.5 % (36.0-47.0); HEMOGLOBIN 13.7 g/dl (12.0-15.5); LYMPH # 1.9 10^3/uL (1.5-5.0); LYMPH % 17.3 % (24.0-44.0); MEAN CORPUSCULAR HEMOGLOBIN 26.8 pg (27.0-33.0); MEAN CORPUSCULAR HGB CONC 32.2 g/dl (32.0-36.5); MONO # 0.7 10^3/uL (0.0-0.8); MONO % 6.3 % (2.0-8.0); NEUTROPHILS # 8.3 10^3/uL (1.5-8.5); NEUTROPHILS % 73.9 % (36.0-66.0); PLATELET COUNT, AUTOMATED 298 10^3/uL (150-450); RED BLOOD COUNT 5.12 10^6/uL (4.00-5.40); WHITE BLOOD COUNT 11.2 10^3/uL (4.0-10.0)
--- NOTE | 2020-08-01 11:50 | REP ---
INDICATION: pain/heavy bleeding ?IUD placement COMPARISON: None. TECHNIQUE: Transabdominal pelvic ultrasound followed by transvaginal examination for better evaluation of the endometrium and adnexa with color Doppler evaluation of the ovaries. FINDINGS: Bladder is under distended/collapsed and currently measures 3.0 x 1.8 x 1.0 cm Normal retroverted uterus measures 8.9 x 5.3 x 6.1 cm. The endometrial complex measures 18 mm thickness with IUD in satisfactory position. No discrete uterine or endometrial abnormalities are appreciated. Bilateral ovaries are normal in appearance and vascularity. Right ovary measures 2.8 x 1.9 x 2.8 cm (RI 0.52). Left ovary measures 3.1 x 2.4 x 3.0 cm and includes 2.7 cm physiologic cyst/dominant follicle (RI 0.62). No pelvic fluid or adnexal mass lesion. IMPRESSION: 1. Thickened endometrial complex likely physiologic and related to menstrual cycle. No discrete uterine or endometrial abnormality identified. Normal ovaries. 2. IUD in satisfactory position. <Electronically signed by Tee Montano > 08/01/20 [id number]
[2020-08-01 12:15] VITALS: BP 129/81
== END 2020-08-01 12:17 | disposition home or self-care (01) ==
LOC: M ED 09:21
DX: N92.0 Excessive and frequent menstruation with regular cycle (principal); Z97.5 Presence of (intrauterine) contraceptive device